=== PATIENT | female | born 1985 | race Two or more races ===

== ENCOUNTER 2017-10-06 15:15 | Outpatient (CLI) | payer OTHER ==
[~2017-10-06] VITALS: Ht 162.6 cm; Wt 99.3 kg
[~2017-10-06 15:15] MED LIST: Motrin PO; NAPROSYN500 MG PO; PERCOCET 5/31 TABLET PO; Percocet 5/325,Endoc PO; ULTRAM50 MG PO
[2017-10-06] MEDS ORDERED: ASPIRIN81 M2 PO (15:41)
[2017-10-06 16:04] VITALS: BP 100/54
[2017-10-06 16:53] LABS: BASOPHIL (%) 0.3 % (0-1); EOSINOPHIL (%) 0.6 % (0-5); EOSINOPHIL COUNT 0.1 K/uL (0-0.3); HEMATOCRIT 28.1 % (36.0-46.0); IMMATURE GRANULOCYTE (%) 0.4 % (0.0-0.7); LYMPHOCYTE (%) 17.7 % (15-42); MCV 84.4 FL (83-99); MONOCYTE (%) 9.7 % (3-12); MONOCYTE COUNT 1.1 K/uL (0-0.8); NEUTROPHIL (%) 71.3 % (45-76); PLATELET COUNT 449 K/uL (156-360); RBC DIS.WIDTH-CV 14.4 % (11.8-14.6); RBC DIS.WIDTH-SD 43.9 % (39-53); RED BLOOD COUNT 3.33 M/uL (3.80-5.20); WHITE BLOOD COUNT 11.2 K/uL (4.1-10.2)
[2017-10-06 17:17] LABS: ALBUMIN 3.1 G/DL (3.2-4.8); ALKALINE PHOSPHATASE 86 IU/L (3-129); ALT (GPT) 6 IU/L (3-49); AST (GOT) 10 IU/L (2-34); CHLORIDE 110 MEQ/L (99-109); CREATININE 0.9 MG/DL (0.6-1.3); GFR ESTIMATE (CALCULATED) > 59 mL/min/; GLUCOSE 70 mg/dL (70-99); POTASSIUM 3.6 MEQ/L (3.7-5.4); SODIUM 139 MEQ/L (136-147); TOTAL BILIRUBIN 0.2 MG/DL (0.0-1.0); TOTAL PROTEIN 5.6 G/DL (6.4-8.3); UREA NITROGEN (BUN) 10 mg/dL (9-23)
[2017-10-06 17:56] LABS: AMPHETAMINE NEGATIVE (500 ng/mL); BARBITURATES NEGATIVE (200 ng/mL); BENZODIAZEPINES NEGATIVE (150 ng/mL); BUPRENORPHINE NEGATIVE (10 ng/mL); COCAINE NEGATIVE (150 ng/mL); METHADONE NEGATIVE (200 ng/mL); METHAMPHETAMINE NEGATIVE (500 ng/mL); OPIATES (MORPHINE) NEGATIVE (100 ng/mL); OXYCODONE NEGATIVE (100 ng/mL); PHENCYCLIDINE NEGATIVE (25 ng/mL); PROPOXYPHENE NEGATIVE (300 ng/mL); THC CANNABINOIDS NEGATIVE (50 ng/mL); TRICYCLIC ANTIDEPRESSANTS NEGATIVE (300 ng/mL)
[2017-10-06] MEDS ORDERED: IRON325 M1 PO (18:41)
[2017-10-06] MEDS ORDERED: VALTREX50 MG/ML PO (18:42)
[2017-10-07 09:38] LABS: HEMOGLOBIN A1c (GLYCOHEMOGLOB) 5.9 % (Below 5.7)
== END 2017-10-06 18:58 | disposition home or self-care (01) ==
LOC: LDRP-OP 15:15 → 2WEST 15:17 → LDRP-OP 11-30 14:09
PROVIDERS: Advanced Practice Midwife; Obstetrics & Gynecology
DX: O36.8130 Decreased fetal movements, third trimester, not applicable or unspecified (principal); Z3A.36 36 weeks gestation of pregnancy; O99.413 Diseases of the circulatory system complicating pregnancy, third trimester; O99.89 Other specified diseases and conditions complicating pregnancy, childbirth and the puerperium; O99.213 Obesity complicating pregnancy, third trimester; O99.013 Anemia complicating pregnancy, third trimester; O24.419 Gestational diabetes mellitus in pregnancy, unspecified control; Z90.5 Acquired absence of kidney; Z79.82 Long term (current) use of aspirin; Z98.890 Other specified postprocedural states; O99.343 Other mental disorders complicating pregnancy, third trimester; F41.9 Anxiety disorder, unspecified; F32.9 Major depressive disorder, single episode, unspecified; E66.9 Obesity, unspecified; O98.313 Other infections with a predominantly sexual mode of transmission complicating pregnancy, third trimester; B00.9 Herpesviral infection, unspecified; Z87.891 Personal history of nicotine dependence
CPT/HCPCS: 59025; 76818; 80053; 83036; 85025; 87086; G0378; J7030

== ENCOUNTER 2017-10-07 15:57 | Inpatient (IN) | payer OTHER ==
[~2017-10-07] VITALS: Ht 162.6 cm; Wt 99.5 kg
[~2017-10-07 15:57] MED LIST changes: +ASPIRIN81 M2 PO; +IRON325 M1 PO; +VALTREX50 MG/ML PO
[2017-10-07 16:12] VITALS: BP 123/64
[2017-10-07 16:44] LABS: BASOPHIL (%) 0.3 % (0-1); EOSINOPHIL (%) 0.5 % (0-5); EOSINOPHIL COUNT 0.1 K/uL (0-0.3); HEMATOCRIT 29.8 % (36.0-46.0); HEMOGLOBIN 9.8 G/DL (11.9-15.5); IMMATURE GRANULOCYTE (%) 0.5 % (0.0-0.7); LYMPHOCYTE (%) 17.6 % (15-42); LYMPHOCYTE COUNT 2.1 K/uL (1.0-2.8); MCH 26.8 PG (29.0-34.0); MCHC 32.9 G/DL (30.0-36.0); MCV 81.6 FL (83-99); MONOCYTE (%) 5.2 % (3-12); MONOCYTE COUNT 0.6 K/uL (0-0.8); NEUTROPHIL (%) 75.9 % (45-76); NEUTROPHIL COUNT 9.1 K/uL (1.8-6.4); PLATELET COUNT 498 K/uL (156-360); RBC DIS.WIDTH-CV 14.2 % (11.8-14.6); RBC DIS.WIDTH-SD 41.5 % (39-53); RED BLOOD COUNT 3.65 M/uL (3.80-5.20)
[2017-10-07 16:59] LABS: ALBUMIN 3.1 g/dL (3.2-4.8)
[2017-10-07 17:00] LABS: CHLORIDE 108 mEq/L (99-109); POTASSIUM 3.5 mEq/L (3.7-5.4); SODIUM 136 mEq/L (136-147)
[2017-10-07 17:02] LABS: TOTAL PROTEIN 6.3 g/dL (6.4-8.3)
[2017-10-07 17:04] LABS: GLUCOSE 140 mg/dL (70-99); TOTAL BILIRUBIN 0.3 mg/dL (0.0-1.0)
[2017-10-07 17:05] LABS: ALKALINE PHOSPHATASE 109 IU/L (3-129)
[2017-10-07 17:06] LABS: CREATININE 0.9 mg/dL (0.6-1.3); GFR ESTIMATE (CALCULATED) > 59 mL/min/
[2017-10-07 17:07] LABS: AST (GOT) 12 IU/L (2-34); UREA NITROGEN (BUN) 9 mg/dL (9-23)
[2017-10-07 17:09] LABS: ALT (GPT) 6 IU/L (3-49)
[2017-10-07 21:37] VITALS: BP 112/61
[2017-10-07 23:00] VITALS: BP 103/58
[2017-10-08 01:09] VITALS: BP 130/70
[2017-10-08 07:10] VITALS: BP 121/59
[2017-10-08 08:02] LABS: BASOPHIL (%) 0.1 % (0-1); EOSINOPHIL (%) 0 % (0-5); HEMOGLOBIN 8.2 G/DL (11.9-15.5); IMMATURE GRANULOCYTE (%) 0.5 % (0.0-0.7); LYMPHOCYTE (%) 5.9 % (15-42); LYMPHOCYTE COUNT 1.3 K/uL (1.0-2.8); MCH 26.1 PG (29.0-34.0); MCHC 31.5 G/DL (30.0-36.0); MCV 82.8 FL (83-99); MONOCYTE (%) 4.8 % (3-12); NEUTROPHIL (%) 88.7 % (45-76); NEUTROPHIL COUNT 18.8 K/uL (1.8-6.4); PLATELET COUNT 487 K/uL (156-360); RBC DIS.WIDTH-CV 14.3 % (11.8-14.6); RBC DIS.WIDTH-SD 42.6 % (39-53); RED BLOOD COUNT 3.14 M/uL (3.80-5.20); WHITE BLOOD COUNT 21.3 K/uL (4.1-10.2)
[2017-10-08 10:53] VITALS: BP 111/68
[2017-10-08 15:47] VITALS: BP 135/60
[2017-10-08 19:08] VITALS: BP 119/62
[2017-10-08 23:00] VITALS: BP 104/54
[2017-10-09 07:45] VITALS: BP 102/57
[2017-10-09 11:30] VITALS: BP 104/59
[2017-10-10 07:27] VITALS: BP 107/55
[2017-10-10 12:00] VITALS: BP 122/58
[2017-10-10 23:37] VITALS: BP 130/69
[2017-10-11 07:18] VITALS: BP 124/67
[2017-10-11] MEDS ORDERED: OXYCODONE-APAP1 EACH PO (12:51)
[2017-10-11] MEDS ORDERED: IBUPROFEN800 MG PO (12:51)
[2017-10-11] MEDS ORDERED: VALACYCLOVIR500 MG PO (12:51)
[2017-10-11] MEDS ORDERED: CHROMAGEN,1 CAPSULE PO (12:51)
== END 2017-10-11 14:23 | disposition home or self-care (01) | DRG 765 ==
LOC: LDRP-OP 15:57 → 2WEST 15:59 → LDRP-OP 11-30 21:24
PROVIDERS: Obstetrics & Gynecology Obstetrics
PROC: 10D00Z1 Extraction of Products of Conception, Low, Open Approach (ICD-10-PCS; principal; 2017-10-07)
DX: O34.211 Maternal care for low transverse scar from previous cesarean delivery (principal); O60.14X0 Preterm labor third trimester with preterm delivery third trimester, not applicable or unspecified; O99.42 Diseases of the circulatory system complicating childbirth; O24.420 Gestational diabetes mellitus in childbirth, diet controlled; O36.8130 Decreased fetal movements, third trimester, not applicable or unspecified; O98.32 Other infections with a predominantly sexual mode of transmission complicating childbirth; O90.81 Anemia of the puerperium; A60.00 Herpesviral infection of urogenital system, unspecified; Z3A.36 36 weeks gestation of pregnancy; Z37.0 Single live birth
CPT/HCPCS: 59025; 76818; 80053; 82948; 83036; 85025; 86850; 86900; 86901; 87086; 88307; G0378; J0131; J0690; J0702; J1170; J1885; J2250; J2270; J2274; J2300; J2405; J2590; J3010; J7030; J7120